=== PATIENT | male | born 1995 ===

== ENCOUNTER 2017-12-29 11:01 | Emergency (ER) | payer OTHER ==
[~2017-12-29] VITALS: Ht 175.3 cm; Wt 65.8 kg
== END 2017-12-29 12:56 | disposition home or self-care (01) ==
LOC: ER 11:01
DX: S61.412A Laceration without foreign body of left hand, initial encounter (principal); Z23 Encounter for immunization; W26.0XXA Contact with knife, initial encounter
CPT/HCPCS: 12002; 90714; 99282